=== PATIENT | female | born 1990 | race Caucasian/White ===

== ENCOUNTER 2017-04-13 09:19 | Emergency (ER) | payer MEDICAID ==
[~2017-04-13] VITALS: Ht 170.2 cm; Wt 84.9 kg
[2017-04-13 10:33] LABS: BASOPHIL % 0.4 % (0-2); PLATELET COUNT 300 x10^3mcL (130-400); RED CELL DISTRIBUTION WIDTH 12.4 % (11.5-14.5)
[2017-04-13 10:39] LABS: microscopic required? NO
[2017-04-13 10:47] LABS: CALCIUM 9.4 mg/dL (8.5-10.1); CARBON DIOXIDE 22.9 mmol/L (21-32); CHLORIDE SERUM 103 mmol/L (98-107); CREATININE SERUM 0.9 mg/dL (0.6-1.0); GFR1 > 60 mL/min; GLUCOSE SERUM 113 mg/dL (74-106); POTASSIUM SERUM 3.4 mmol/L (3.5-5.1); SODIUM SERUM 141 mmol/L (136-145)
[2017-04-13 10:51] LABS: ALBUMIN 4.7 g/dL (3.4-5.0); ALKALINE PHOSPHATASE 82 U/L (46-116); ALT/SGPT 17 U/L (14-59); AST/SGOT 16 U/L (15-37); BILIRUBIN TOTAL 0.5 mg/dL (0.20-1.00); LIPASE 227 IU/L (73-393); TOTAL PROTEIN, SERUM 8.2 g/dL (6.4-8.2)
[2017-04-13 10:57] LABS: urine erythrocyte NEGATIVE (NEGATIVE)
[2017-04-13 12:46] VITALS: BP 111/83
== END 2017-04-13 13:12 | disposition home or self-care (01) ==
LOC: ED 09:19
PROVIDERS: Emergency Medicine
DX: R10.13 Epigastric pain (principal); R11.2 Nausea with vomiting, unspecified; R19.7 Diarrhea, unspecified
CPT/HCPCS: 83880; J2060; J2270; J2405; J7030

== ENCOUNTER 2017-10-09 09:50 | Emergency (ER) | payer MEDICAID ==
[~2017-10-09] VITALS: Ht 170.2 cm; Wt 79.4 kg
[2017-10-09 10:02] VITALS: Ht 170.2 cm; Wt 79.4 kg
[2017-10-09 15:13] VITALS: BP 157/87
== END 2017-10-09 15:13 | disposition home or self-care (01) ==
LOC: ED 09:50
DX: A08.4 Viral intestinal infection, unspecified (principal); N30.00 Acute cystitis without hematuria
CPT/HCPCS: J0780; Q0162

== ENCOUNTER 2018-04-11 21:04 | Emergency (ER) | payer MEDICAID ==
[~2018-04-11] VITALS: Ht 170.2 cm; Wt 77.1 kg
[2018-04-11 21:17] VITALS: Ht 170.2 cm; Wt 77.1 kg
[2018-04-11 23:26] VITALS: BP 123/61
== END 2018-04-11 23:26 | disposition home or self-care (01) ==
LOC: ED 21:04
DX: T63.441A Toxic effect of venom of bees, accidental (unintentional), initial encounter (principal); R06.02 Shortness of breath; Y92.89 Other specified places as the place of occurrence of the external cause
CPT/HCPCS: J0171; J1200; J7512

== ENCOUNTER 2018-07-13 17:13 | Emergency (ER) | payer MEDICAID ==
[2018-07-13 17:15] VITALS: BP 142/77; Ht 170.2 cm
== END 2018-07-13 18:57 | disposition home or self-care (01) ==
LOC: ED 17:13
DX: S63.613A Unspecified sprain of left middle finger, initial encounter (principal); W22.01XA Walked into wall, initial encounter; Y93.89 Activity, other specified; Y92.89 Other specified places as the place of occurrence of the external cause; Y99.8 Other external cause status
CPT/HCPCS: J1885

== ENCOUNTER 2019-04-22 12:03 | Emergency (ER) | payer BC ==
[~2019-04-22] VITALS: Ht 170.2 cm; Wt 75.7 kg
[2019-04-22 12:09] VITALS: Ht 170.2 cm; Wt 75.7 kg
[2019-04-22 12:49] LABS: BASOPHIL % 0.2 % (0-2); PLATELET COUNT 284 x10^3mcL (130-400); RED CELL DISTRIBUTION WIDTH 12.6 % (11.5-14.5)
[2019-04-22 13:29] LABS: CARBON DIOXIDE 24.4 mmol/L (21-32); CHLORIDE SERUM 106 mmol/L (98-107); GFR1 > 60 mL/min; GLUCOSE SERUM 129 mg/dL (74-106); POTASSIUM SERUM 3.6 mmol/L (3.5-5.1); SODIUM SERUM 142 mmol/L (136-145)
[2019-04-22 13:33] LABS: ALBUMIN 4.6 g/dL (3.4-5.0); ALKALINE PHOSPHATASE 78 U/L (46-116); ALT/SGPT 20 U/L (14-59); AST/SGOT 13 U/L (15-37); BILIRUBIN TOTAL 0.39 mg/dL (0.20-1.00); LIPASE 191 IU/L (73-393); TOTAL PROTEIN, SERUM 8.2 g/dL (6.4-8.2)
[2019-04-22 16:29] VITALS: BP 179/79
== END 2019-04-22 16:29 | disposition home or self-care (01) ==
LOC: ED 12:03
PROVIDERS: Emergency Medicine
DX: R10.84 Generalized abdominal pain (principal); R11.2 Nausea with vomiting, unspecified
CPT/HCPCS: J2270; J2405; J3010; J7030